=== PATIENT | female | born 1965 | race Hispanic/Latino ===

== ENCOUNTER 2021-05-16 18:55 | Observation (INO) | payer SELFPAY ==
--- NOTE | 2021-05-16 19:30 | Emergency Department Report ---
Blank Doc - Documentation Documentation: Junaid Taveras Teleneurology Consult Note # Demographics Consult Type: Acute Stroke Level 1 (0-4.5 hrs) Patient Location: Emergency Room First Name: [place] Last Name: Gilberto Gender: Female Facility: [facility] Time of Initial Page ( Time): 05/16/2021, 18:57 Time of Return Call ( Time): 05/16/2021, 18:57 # Scores Time of exam and NIHSS ( Time): 05/16/2021, 19:00 Level of Consciousness 1a: [0] = Alert; keenly responsive LOC Questions 1b: [0] = Answers both questions correctly LOC Commands 1c: [0] = Performs both tasks correctly Best Gaze 2: [0] = Normal Visual 3: [0] = No visual loss Facial Palsy 4: [0] = Normal symmetrical movements Motor Arm Left 5a: [0] = No drift Motor Arm Right 5b: [0] = No drift Motor Leg Left 6a: [0] = No drift Motor Leg Right 6b: [0] = No drift Limb Ataxia 7: [0] = Absent Sensory 8: [0] = Normal Best Language 9: [0] = No aphasia Dysarthria 10: [0] = Normal Extinction and Inattention 11: [0] = No abnormality NIHSS Total: 0 # Exam Additional Neurologic Exam: able to sit unassisted # Data Head CT: hypodensity in the left frontal lobe. appears like edema. not consist with stroke # Assessment Impression: Vertigo # Plan Imaging: (urgency: STAT): CT Angiogram Head and CT Angiogram Neck AND call back with results if abnormal Imaging: (urgency: routine): MRI Brain with AND without contrast Other: I have discussed my recommendations with the referring provider Additional Recommendations: given abnormal CT (that are not a typical explanation of her symptoms) MRI is recommended for further eval # Logistics Telemedicine: Interactive 2 way audio and visual telecommunication technology was utilized during this visit
[2021-05-16 19:36] LABS: Basophils % (Auto) 0.7 % (0.0-1.8); Eosinophils # (Auto) 0.1 K/mm3 (0.0-0.4); Eosinophils % (Auto) 2.1 % (0.0-4.3); Hematocrit 43.3 % (30.3-42.9); Lymphocytes # (Auto) 2.2 K/mm3 (1.2-5.4); Lymphocytes % (Auto) 40.7 % (13.4-35.0); Mean Corpuscular HGB Conc 32 % (30-34); Mean Corpuscular Volume 95 fl (79-97); Monocytes # (Auto) 0.4 K/mm3 (0.0-0.8); Monocytes % (Auto) 7.2 % (0.0-7.3); Platelet Count 165 K/mm3 (140-440); Red Blood Count 4.55 M/mm3 (3.65-5.03); Red Cell Distribution Width 13.8 % (13.2-15.2)
[2021-05-16] MEDS ORDERED: MECLIZINE 25 MG TAB PO ONE (19:36)
[2021-05-16] MEDS ORDERED: ONDANSETRON 4 MG/2 ML INJ IV ONE (19:36)
--- NOTE | 2021-05-16 19:42 | Emergency Department Report ---
HPI - General Time Seen by Provider: 05/16/21 19:22 - HPI HPI: Room 18 The patient is a 55-year-old female present with a chief complaint of dizziness. The patient states she was driving back to [place] from [place] when she suddenly became dizzy feeling as though she was spinning. Her family had to pull the car over because she developed nausea and vomiting. Patient states she had an episode of diarrhea as well. Patient denied ever having dysarthria, weakness or paresthesia of any type. Patient denies shortness of breath, fever or cough. Patient denies headache or recent antibiotic use. Patient states she has been vaccinated against Covid receiving her second Moderna vaccine "several months ago." The patient states she took a clonidine approximately 40 minutes ago ED Past Medical Hx - Past Medical History Hx Hypertension: Yes Hx CVA: Yes (No residual deficits) - Surgical History Past Surgical History?: No - Family History Family history: no significant - Social History Smoking Status: Former Smoker (None [id number]) Substance Use Type: None (Denies illicit drug use), Alcohol (Occasional) ED Review of Systems ROS: Stated complaint: POSS STROKE Other details as noted in HPI Constitutional: denies: fever Eyes: denies: eye pain ENT: denies: throat pain Respiratory: denies: cough, shortness of breath Cardiovascular: denies: chest pain Endocrine: no symptoms reported Gastrointestinal: nausea, vomiting, diarrhea Genitourinary: denies: dysuria Musculoskeletal: denies: back pain Neurological: vertigo. denies: headache Physical Exam - Physical Exam Physical Exam: GENERAL: The patient is well-developed well-nourished female lying on stretcher with her eyes closed appearing to be in mild discomfort. [] HEENT: Normocephalic. Atraumatic. Extraocular motions are intact. Patient has moist mucous membranes. No nystagmus NECK: Supple. No meningitic signs are noted. Trachea midline CHEST/LUNGS: Clear to auscultation. There is no respiratory distress noted. HEART/CARDIOVASCULAR: Regular. There is no tachycardia. There is no gallop rub or murmur. ABDOMEN: Abdomen is soft, nontender. Patient has normal bowel sounds. There is no abdominal distention. SKIN: There is no rash. There is no edema. There is no diaphoresis. NEURO: The patient is awake, alert, and oriented. The patient is cooperative. The patient has no focal neurologic deficits. The patient has normal speech. Cranial nerves II through XII grossly intact. GCS 15. NIHSS= 0. No dysmetria noted with [id number] bilaterally MUSCULOSKELETAL: There is no evidence of acute injury. ED Course - Consultations Consultation #1: 05/16/21 21:50 Case discussed with anvil worker Dr Hatfield ED Medical Decision Making - Lab Data Result diagrams: 05/16/21 19:26 Laboratory Tests 05/16/21 05/16/21 05/16/21 19:26 19:26 19:26 WBC 5.3 RBC 4.55 Hgb 14.0 Hct 43.3 H MCV 95 MCH 31 MCHC 32 RDW 13.8 Plt Count 165 Lymph % (Auto) 40.7 H Keith % (Auto) 7.2 Eos % (Auto) 2.1 Baso % (Auto) 0.7 Lymph # (Auto) 2.2 Keith # (Auto) 0.4 Eos # (Auto) 0.1 Baso # (Auto) 0.0 Seg Neutrophils % 49.3 Seg Neutrophils # 2.6 PT 14.0 INR 0.97 APTT 27.1 Thrombin Time 16.3 D-Dimer 191.80 Total Creatine Kinase 80 CK-MB (CK-2) 1.7 CK-MB (CK-2) Rel Index 2.1 Troponin T < 0.010 - Radiology Data Radiology results: report reviewed (CT head, chest x-ray, CT brain, CTA neck), image reviewed (CT head, chest x-ray, CTA brain, CTA neck) interpreted by me: Chest x-ray-no definite focal infiltrates, no pneumothorax [address] [address] Cat Scan Report Signed Patient: BROOK RAMESH MR#: [id number] : 1965 Acct:[id number] Age/Sex: 55 / F ADM Date: 05/16/21 Loc: ED Attending Dr: Ordering Physician: Phuong Salcedo MD Date of Service: 05/16/21 Procedure(s): CT head/brain wo con Accession Number(s): [id number] cc: Phuong Salcedo MD CT HEAD WITHOUT CONTRAST INDICATION / CLINICAL INFORMATION: Stroke symptoms. TECHNIQUE: All CT scans at this location are performed using CT dose reduction for ALARA by means of automated exposure control. COMPARISON: None available. FINDINGS: HEMORRHAGE: No evidence of intracranial hemorrhage or extra-axial fluid collection. EXTRA-AXIAL SPACES: Cortical sulci, sylvian fissures and basilar cisterns have an unremarkable appearance. VENTRICULAR SYSTEM: The third and lateral ventricles are of normal size and configuration. CEREBRAL PARENCHYMA: There is evidence of remote small deep infarction adjacent to the head of the caudate nucleus on the left. Decreased brain parenchymal attenuation is seen in the white matter left frontal lobe. This appears to spare the adjacent cortex and may not represent the sequelae of recent infarction. Follow- up with MRI brain without and with intravenous contrast is recommended for f urther evaluation of the left frontal lobe abnormality. MIDLINE SHIFT OR HERNIATION: There is no mass effect. CEREBELLUM / BRAINSTEM: Brainstem and cerebellum have an unremarkable appearance. MIDLINE STRUCTURES:No abnormalities of the pituitary gland or pineal region are identified. INTRACRANIAL VESSELS:No abnormalities are identified on this noncontrast head CT. ORBITS: visualized portions of the orbits have an unremarkable appearance. SOFT TISSUES of HEAD: No significant abnormality. CALVARIUM: Evaluation of bone windows reveals no abnormalities. PARANASAL SINUSES / MASTOID AIR CELLS: Visualized portions of the paranasal sinuses are free from inflammatory mucosal disease. Mastoid air cells are normally pneumatized. IMPRESSION: 1. Remote small deep infarction adjacent to the head of caudate nucleus on the left. 2. Nonspecific decreased white matter attenuation left frontal lobe. Further evaluation with magnetic resonance imaging to be performed without and with intravenous contrast is suggested. Signer Name: Tarun Arriaga MD Signed: 05/16/2021 8:00 PM Workstation Name: [id number] Transcribed By: Dictated By: Tarun Arriaga MD Electronically Authenticated By: Tarun Arriaga MD Signed Date/Time: 05/16/211999 DD/ 47 TD/TT: Print Cancel [facility] [address] [place] [address] XRay Report Signed Patient: BROOK RAMESH MR#: [id number] : 1965 Acct:[id number] Age/Sex: 55 / F ADM Date: 05/16/21 Loc: ED Attending Dr: Ordering Physician: Phuong Salcedo MD Date of Service: 05/16/21 Procedure(s): XR chest 1V ap Accession Number(s): [id number] cc: Phuong Salcedo MD Fluoro Time In Minutes: CHEST 1 VIEW 05/16/2021 6:47 PM INDICATION / CLINICAL INFORMATION: stroke symptoms. COMPARISON: None available. FINDINGS: SUPPORT DEVICES: None. HEART / MEDIASTINUM: No significant abnormality. LUNGS / PLEURA: No significant pulmonary or pleural abnormality. No pneumothorax. ADDITIONAL FINDINGS: No significant additional findings. IMPRESSION: 1. No acute findings. Signer Name: Dillan Pop MD Signed: 05/16/2021 7:52 PM Workstation Name: [id number] Transcribed By: THANG Dictated By: Dillan Pop MD Electronically Authenticated By: Dillan Pop MD Signed Date/Time: 05/16/211951 DD/ 51 TD/TT: [place] [address] Cat Scan Report Signed Patient: BROOK RAMESH MR#: [id number] : 1965 Acct:[id number] Age/Sex: 55 / F ADM Date: 05/16/21 Loc: ED Attending Dr: Ordering Physician: Phuong Salcedo MD Date of Service: 05/16/21 Procedure(s): CT angio head Accession Number(s): [id number] cc: Phuong Salcedo MD CTA neck without and with intravenous contrast material CLINICAL HISTORY: stroke sx TECHNIQUE: Following acquisition of a timing bolus 0.625 mm thick contiguous axial scans were obtained from aortic arch to the skull base during rapid bolus intravenous contrast infusion. In addition to evaluation of axial source images multiplanar reconstructions were produced and reviewed for this report. 3 plane MIP reconstructions were produced and reviewed. Contrast dose report: Omnipaque 350: 100 ml, administered intravenously All CT examinations performed at this facility utilize modulated dose reduction, iterative reconstruction or weight- based dosing, as appropriate, to obtain a radiation dose which is as low as can reasonably be achieved. FINDINGS: Thoracic aorta:No abnormalities are identified along the course of the thoracic aorta..The origins of the great vessels have an unremarkable appearance. Brachiocephalic artery, left common carotid artery origin and left subclavian artery all have an unremarkable appearance. Right carotid artery: Combination of soft and calcified plaque is present at the carotid bulb extending into the proximal R ICA. There is no indication of hemodynamically significant stenosis. Right common carotid artery and mid and distal segments of the R ICA have an unremarkable appearance. Left carotid artery: Calcified atherosclerotic plaque is seen along the proximal LICA. There is no associated stenosis. Left common carotid artery, left carotid bulb and mid and distal segments of the LICA have an unremarkable appearance. Posterior circulation:The vertebral arteries have an unremarkable appearance. Both vertebr al arteries contribute to the basilar artery origin. The basilar artery has an unremarkable appearance. The degree of stenosis, if any, is determined utilizing NASCET like criteria. In this case there is no indication of hemodynamically significant stenosis at the carotid bifurcations or elsewhere. Evaluation of the nonvascular soft tissue structures reveal no abnormality. There is no indication of cervical lymphadenopathy. No abnormalities are seen along the course of the airway. Visualized portions of the parotid glands and the submandibular salivary glands have a normal appearance. Thyroid gland has a normal appearance. Evaluation of the lung apices reveals no evidence of lung nodule or infiltrate. Evaluation of the cervical spine is remarkable for widespread degenerative changes with disc desiccation and small anterior and posterior osteophytes present at multiple levels. Central spinal canal is adequately maintained throughout. IMPRESSION: 1. No indication of hemodynamically significant stenosis at the carotid bifurcations or elsewhere. CTA head with intravenous contrast CLINICAL HISTORY: stroke sx TECHNIQUE: 0.625 mm thick contiguous axial scans were obtained from the skull base to the skull vertex during rapid bolus administration of intravenous contrast material. Multiplanar reconstructions were produced in the coronal and sagittal planes. In addition 3 plane MIP instructions were produced and reviewed for this report. The axial source images and reconstructed images were reviewed for this report. CONTRAST DOSE REPORT: Omnipaque 350: 100 ml administered intravenously. All CT scans at this location are performed using CT dose reduction for ALARA by means of automated exposure control. FINDINGS: Internal carotid arteries:Anitra, cavernous, opthalmic, clinoid and supraclinoid segments of the ICAs have an unremarkable appearance. Middle cerebral arteries:Normal and symmetrical M1 segments of the middle cerebral arteries are demonstrated. No abnormalities are seen on evaluation of the insular or opercular branches. Anterior cerebral arteries:Bilaterally symmetrical A1 segments are demonstrated. No abnormalities are seen along the course of the A2 segments or their visualized pericallosal branches. Vertebral arteries:Bilaterally symmetrical vertebral arteries are demonstrated. Both vertebral arteries contribute to the basilar artery origin. Basilar artery:Basilar artery has an unremarkable appearance. Posterior cerebral arteries:Bilaterally symmetrical posterior cerebral arteries are identified. Dural sinuses: Asymmetry of the transverse sinuses is demonstrated, right larger than left. Filling defects in the right transverse sinus appear to represent pacchionian granulations. Superior sagittal sinus, straight sinus, vein of Tenzin and internal cerebral veins have an unremarkable appearance. IMPRESSION: 1. No indication of significant intercranial stenosis or large vessel occlusion. Signer Name: Tarun Arriaga MD Signed: 05/16/2021 8:10 PM Workstation Name: [id number] Transcribed By: Dictated By: Tarun Arriaga MD Electronically Authenticated By: Tarun Arriaga MD Signed Date/Time: 05/16/212009 DD/ 00 TD/TT: Print Cancel - Differential Diagnosis CVA, vertigo, hypertensive urgency, hypertensive emergency Critical care attestation.: If time is entered above; I have spent that time in minutes in the direct care of this critically ill patient, excluding procedure time. ED Disposition Clinical Impression: Hypertensive urgency, Vertigo Disposition: ADMITTED INPATIENT Is pt being admited?: Yes Does the pt Need Aspirin: Yes Condition: Fair Time of Disposition: 21:50 (Hospitalist notified (Dr. Alarcon))
[2021-05-16 19:46] LABS: INR 0.97 (0.87-1.13)
[2021-05-16 19:47] LABS: Partial Thromboplastin Time 27.1 Sec. (24.2-36.6); Thrombin Time 16.3 Sec. (15.1-19.6)
[2021-05-16 19:54] LABS: Creatine Kinase MB 1.7 ng/mL (0.0-4.0)
--- NOTE | 2021-05-16 19:56 | XRay Report ---
CHEST 1 VIEW 05/16/2021 6:47 PM INDICATION / CLINICAL INFORMATION: stroke symptoms. COMPARISON: None available. FINDINGS: SUPPORT DEVICES: None. HEART / MEDIASTINUM: No significant abnormality. LUNGS / PLEURA: No significant pulmonary or pleural abnormality. No pneumothorax. ADDITIONAL FINDINGS: No significant additional findings. IMPRESSION: 1. No acute findings. Signer Name: Dillan Pop MD Signed: 05/16/2021 7:52 PM Workstation Name: [id number]
--- NOTE | 2021-05-16 20:04 | Cat Scan Report ---
CT HEAD WITHOUT CONTRAST INDICATION / CLINICAL INFORMATION: Stroke symptoms. TECHNIQUE: All CT scans at this location are performed using CT dose reduction for ALARA by means of automated e xposure control. COMPARISON: None available. FINDINGS: HEMORRHAGE: No evidence of intracranial hemorrhage or extra-axial fluid collection. EXTRA-AXIAL SPACES: Cortical sulci, sylvian fissures and basilar cisterns have an unremarkable appear ance. VENTRICULAR SYSTEM: The third and lateral ventricles are of normal size and configuration. CEREBRAL PARENCHYMA: There is evidence of remote small deep infarction adjacent to the head of the ca udate nucleus on the left. Decreased brain parenchymal attenuation is seen in the white matter left f rontal lobe. This appears to spare the adjacent cortex and may not represent the sequelae of recent i nfarction. Follow-up with MRI brain without and with intravenous contrast is recommended for further evaluation of the left frontal lobe abnormality. MIDLINE SHIFT OR HERNIATION: There is no mass effect. CEREBELLUM / BRAINSTEM: Brainstem and cerebellum have an unremarkable appearance. MIDLINE STRUCTURES:No abnormalities of the pituitary gland or pineal region are identified. INTRACRANIAL VESSELS:No abnormalities are identified on this noncontrast head CT. ORBITS: visualized portions of the orbits have an unremarkable appearance. SOFT TISSUES of HEAD: No significant abnormality. CALVARIUM: Evaluation of bone windows reveals no abnormalities. PARANASAL SINUSES / MASTOID AIR CELLS: Visualized portions of the paranasal sinuses are free from inf lammatory mucosal disease. Mastoid air cells are normally pneumatized. IMPRESSION: 1. Remote small deep infarction adjacent to the head of caudate nucleus on the left. 2. Nonspecific decreased white matter attenuation left frontal lobe. Further evaluation with magnetic resonance imaging to be performed without and with intravenous contrast is suggested. Signer Name: Tarun Arriaga MD Signed: 05/16/2021 8:00 PM Workstation Name: [id number]
[2021-05-16] MEDS ORDERED: niCARdipine DRIP 40 MG/200 ML BAG IV ONE (20:15)
--- NOTE | 2021-05-16 20:15 | Cat Scan Report ---
CTA neck without and with intravenous contrast material CLINICAL HISTORY: stroke sx TECHNIQUE: Following acquisition of a timing bolus 0.625 mm thick contiguous axial scans were obtained from aort ic arch to the skull base during rapid bolus intravenous contrast infusion. In addition to evaluation of axial source images multiplanar reconstructions were produced and reviewed for this report. 3 [place] MIP reconstructions were produced and reviewed. Contrast dose report: Omnipaque 350: 100 ml, administered intravenously All CT examinations performed at this facility utilize modulated dose reduction, iterative reconstruc tion or weight-based dosing, as appropriate, to obtain a radiation dose which is as low as can reason ably be achieved. FINDINGS: Thoracic aorta:No abnormalities are identified along the course of the thoracic aorta..The origins of the great vessels have an unremarkable appearance. Brachiocephalic artery, left common carotid arter y origin and left subclavian artery all have an unremarkable appearance. Right carotid artery: Combination of soft and calcified plaque is present at the carotid bulb extendi ng into the proximal R ICA. There is no indication of hemodynamically significant stenosis. Right com mon carotid artery and mid and distal segments of the R ICA have an unremarkable appearance. Left carotid artery: Calcified atherosclerotic plaque is seen along the proximal LICA. There is no as sociated stenosis. Left common carotid artery, left carotid bulb and mid and distal segments of the L ICA have an unremarkable appearance. Posterior circulation:The vertebral arteries have an unremarkable appearance. Both vertebral arteries contribute to the basilar artery origin. The basilar artery has an unremarkable appearance. The degree of stenosis, if any, is determined utilizing NASCET like criteria. In this case there is no indication of hemodynamically significant stenosis at the carotid bifurcations or elsewhere. Evaluation of the nonvascular soft tissue structures reveal no abnormality. There is no indication of cervical lymphadenopathy. No abnormalities are seen along the course of the airway. Visualized porti ons of the parotid glands and the submandibular salivary glands have a normal appearance. Thyroid gla nd has a normal appearance. Evaluation of the lung apices reveals no evidence of lung nodule or infil trate. Evaluation of the cervical spine is remarkable for widespread degenerative changes with disc desiccat ion and small anterior and posterior osteophytes present at multiple levels. Central spinal canal is adequately maintained throughout. IMPRESSION: 1. No indication of hemodynamically significant stenosis at the carotid bifurcations or elsewhere. CTA head with intravenous contrast CLINICAL HISTORY: stroke sx TECHNIQUE: 0.625 mm thick contiguous axial scans were obtained from the skull base to the skull vertex during r apid bolus administration of intravenous contrast material. Multiplanar reconstructions were produced in the coronal and sagittal planes. In addition 3 plane MIP instructions were produced and reviewed for this report. The axial source images and reconstructed images were reviewed for this report. CONTRAST DOSE REPORT: Omnipaque 350: 100 ml administered intravenously. All CT scans at this location are performed using CT dose reduction for ALARA by means of automated e xposure control. FINDINGS: Internal carotid arteries:Anitra, cavernous, opthalmic, clinoid and supraclinoid segments of the ICAs have an unremarkable appearance. Middle cerebral arteries:Normal and symmetrical M1 segments of the middle cerebral arteries are demon strated. No abnormalities are seen on evaluation of the insular or opercular branches. Anterior cerebral arteries:Bilaterally symmetrical A1 segments are demonstrated. No abnormalities are seen along the course of the A2 segments or their visualized pericallosal branches. Vertebral arteries:Bilaterally symmetrical vertebral arteries are demonstrated. Both vertebral arteri es contribute to the basilar artery origin. Basilar artery:Basilar artery has an unremarkable appearance. Posterior cerebral arteries:Bilaterally symmetrical posterior cerebral arteries are identified. Dural sinuses: Asymmetry of the transverse sinuses is demonstrated, right larger than left. Filling d efects in the right transverse sinus appear to represent pacchionian granulations. Superior sagittal sinus, straight sinus, vein of Tenzin and internal cerebral veins have an unremarkable appearance. IMPRESSION: 1. No indication of significant intercranial stenosis or large vessel occlusion. Signer Name: Tarun Arriaga MD Signed: 05/16/2021 8:10 PM Workstation Name: [id number]
[2021-05-16] MEDS ORDERED: ASPIRIN 300 MG RECT SUPP PR ONE (20:41)
[2021-05-16] MEDS ORDERED: ACETAMINOPHEN 325 MG TAB PO PRN (22:10)
[2021-05-16] MEDS ORDERED: ALBUTEROL 2.5 MG/3 ML NEBU IH PRN (22:10)
[2021-05-16] MEDS ORDERED: ONDANSETRON 4 MG/2 ML INJ IV PRN (22:10)
[2021-05-16] MEDS ORDERED: HYDROmorphone 1 MG/1 ML INJ IV PRN (22:10)
[2021-05-16] MEDS ORDERED: MORPHINE 2 MG/1 ML INJ IV PRN (22:10)
[2021-05-16] MEDS ORDERED: SODIUM CHLORIDE 0.9% 1000 ML 1,000 ML IV SCH (22:15)
--- NOTE | 2021-05-16 22:20 | History and Physical Report ---
History of Present Illness Date of examination: 05/16/21 Date of admission: 05/16/21 21:51 Chief complaint: dizziness History of present illness: 55-year-old female present with a chief complaint of dizziness. The patient was driving back to [place] from [place] when she suddenly became dizzy feeling as though she was spinning. Her family had to pull the car over because she developed nausea and vomiting. Patient states she had an episode of diarrhea as well. Patient denied ever having dysarthria, weakness or paresthesia of any type. Patient denies shortness of breath, fever or cough. Patient denies headache or recent antibiotic use. Patient states she has been vaccinated against Covid receiving her second Moderna vaccine "several months ago." The patient states she took a clonidine approximately 40 minutes ago In the emergency room patient was seen and evaluated by telemetry neurology for suspected stroke. Patient head CT showed hypodensity in the left frontal lobe appears like edema not consistent with a stroke. Neurologist recommended MRI of the brain with and without contrast. Also patient is found to have hypertensive BP is 255/127 subsequently patient was put on nicardipine drip.'s were going to admit the patient to the ICU. We put the patient on TIA pathway. Will consult critical care and neurology evaluation Past History Past Medical History: hypertension, stroke Medications and Allergies Allergies Allergy/AdvReac Type Severity Reaction Status Date / Time No Known Allergies Allergy Unverified 05/16/21 19:51 Active Meds: Active Medications Nicardipine/Sodium Chloride (Cardene Drip 40 Mg/200 Ml) 40 mg in 200 mls @ 25 mls/hr IV ONCE ONE; Protocol Stop: 05/17/21 04:14 Last Admin: 05/16/21 20:55 Dose: 5 mg/hr, 25 mls/hr Documented by: Review of Systems All systems: negative Cardiovascular: other (Dizziness) Gastrointestinal: nausea, vomiting Exam - Constitutional Vitals: Temp Pulse Resp BP Pulse Ox 20 161/85 94 05/16/21 20:00 05/16/21 21:45 05/16/21 21:45 General appearance: Present: mild distress, well-nourished - EENT Eyes: Present: PERRL ENT: hearing intact, clear oral mucosa - Neck Neck: Present: supple, normal ROM - Respiratory Respiratory effort: normal Respiratory: bilateral: diminished - Cardiovascular Heart Sounds: Present: S1 & S2. Absent: rub, click - Extremities Extremities: pulses symmetrical, No edema Peripheral Pulses: within normal limits - Abdominal General gastrointestinal: Present: soft, non-tender, non-distended, normal bowel sounds Female genitourinary: Present: normal - Integumentary Integumentary: Present: clear, warm, dry - Musculoskeletal Musculoskeletal: gait normal, strength equal bilaterally - Psychiatric Psychiatric: appropriate mood/affect, intact judgment & insight - Neurologic Neurologic: CNII-XII intact, moves all extremities HEART Score - HEART Score Troponin: Troponin T < 0.010 ng/mL (0.00-0.029) 05/16/21 19: Results - Labs CBC & Chem 7: 05/16/21 19: Labs: Laboratory Last Values WBC 5.3 K/mm3 (4.5-11.0) 05/16/21 19: RBC 4.55 M/mm3 (3.65-5.03) 05/16/21 19: Hgb 14.0 gm/dl (10.1-14.3) 05/16/21 19: Hct 43.3 % (30.3-42.9) H 05/16/21 19: MCV 95 fl (79-97) 05/16/21 19: MCH 31 pg (28-32) 05/16/21 19: MCHC 32 % (30-34) 05/16/21 19: RDW 13.8 % (13.2-15.2) 05/16/21 19: Plt Count 165 K/mm3 (140-440) 05/16/21 19: Lymph % (Auto) 40.7 % (13.4-35.0) H 05/16/21 19: [place] % (Auto) 7.2 % (0.0-7.3) 05/16/21 19: Eos % (Auto) 2.1 % (0.0-4.3) 05/16/21 19: Baso % (Auto) 0.7 % (0.0-1.8) 05/16/21 19: Lymph # (Auto) 2.2 K/mm3 (1.2-5.4) 05/16/21 19: [place] # (Auto) 0.4 K/mm3 (0.0-0.8) 05/16/21 19:26 Eos # (Auto) 0.1 K/mm3 (0.0-0.4) 05/16/21 19:26 Baso # (Auto) 0.0 K/mm3 (0.0-0.1) 05/16/21 19:26 Seg Neutrophils % 49.3 % (40.0-70.0) 05/16/21 19: Seg Neutrophils # 2.6 K/mm3 (1.8-7.7) 05/16/21 19:26 PT 14.0 Sec. (12.2-14.9) 05/16/21 19: INR 0.97 (0.87-1.13) 05/16/21 19: APTT 27.1 Sec. (24.2-36.6) 05/16/21 19: Thrombin Time 16.3 Sec. (15.1-19.6) 05/16/21 19:26 D-Dimer 191.80 ng/mlDDU (0-234) 05/16/21 19:26 Total Creatine Kinase 80 units/L (30-135) 05/16/21 19:26 CK-MB (CK-2) 1.7 ng/mL (0.0-4.0) 05/16/21 19:26 CK-MB (CK-2) Rel Index 2.1 (0-4) 05/16/21 19:26 Troponin T < 0.010 ng/mL (0.00-0.029) 05/16/21 19:26 - Imaging and Cardiology CT Scan - head: report reviewed Assessment and Plan VTE prophylaxis?: Mechanical Plan of care discussed with patient/family: Yes - Patient Problems (1) Hypertensive urgency Current Visit: Yes Status: Acute Plan to address problem: Admit the patient to ICU. Aspirin 325 9 p.o. daily. Lipitor 40 mg p.o. daily. We will put the patient on nicardipine drip. We will continue the home m edication we will monitor the blood pressure closely. We also consult critical care evaluation (2) CVA (cerebral vascular accident) Current Visit: Yes Status: Acute Plan to address problem: Aspirin 325 mg p.o. daily. Lipitor 40 mg p.o. daily. We will do the MRI of the brain with and without contrast and MRA of the brain and neck with and without contrast. Echocardiogram. Neurology evaluation (3) Hypertension Current Visit: Yes Status: Acute Plan to address problem: Patient is on nicardipine drip as per protocol. We will monitor the blood pressure closely. We will continue the home medication (4) Vertigo Current Visit: Yes Status: Acute Plan to address problem: Normal saline at the rate of 75 cc/h. We will do MRI of the brain with and without contrast and MRA of the brain and neck with and without contrast. Echocardiogram. We will monitor the patient closely (5) DVT prophylaxis Current Visit: Yes Status: Acute Plan to address problem: SCD for DVT prophylaxis because of high blood pressure. Pepcid 20 mg p.o. twice daily for GI prophylaxis. Patient is a full code
[2021-05-16 23:55] VITALS: BP 167/101
[2021-05-17] MEDS ORDERED: IPRATROPIUM/ALBUTEROL SULFATE 3 ML AMPUL.NEB IH SCH (02:00)
--- NOTE | 2021-05-17 08:29 | Consultation ---
History of Present Illness Consult date: 05/17/21 Past History Past Medical History: hypertension, stroke Medications and Allergies Allergies Allergy/AdvReac Type Severity Reaction Status Date / Time No Known Allergies Allergy Verified 05/16/21 22:22 Physical Examination - Vital Signs Vital Signs: Vital Signs Pulse Ox 95 05/16/21 19:30 Results - Laboratory Findings CBC and BMP: 05/16/21 19:26 Abnormal Lab Findings: Abnormal Labs 05/16/21 19:26 Hct 43.3 H Lymph % (Auto) 40.7 H Assessment and Plan Assessment and Plan VTE prophylaxis?: Mechanical Plan of care discussed with patient/family: Yes pt. signed AMA could not evaluate
--- NOTE | 2021-05-17 09:32 | Electrocardiograph Report ---
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
[2021-05-17] MEDS ORDERED: FAMOTIDINE 20 MG/2 ML INJ IV SCH (10:00)
[2021-05-17] MEDS ORDERED: ASPIRIN 325 MG TAB PO SCH (10:00)
--- NOTE | 2021-05-19 11:32 | Electrocardiograph Report ---
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
== END 2021-05-16 23:56 | disposition home or self-care (01) ==
LOC: ED 18:55 → 4A 21:51 → CC1 22:16
PROVIDERS: ADMIT Hospitalist; ATTEND Internal Medicine
DX: I16.0 Hypertensive urgency (principal); I63.9 Cerebral infarction, unspecified; I10 Essential (primary) hypertension; R42 Dizziness and giddiness; R29.700 NIHSS score 0; Z87.891 Personal history of nicotine dependence
CPT/HCPCS: 36415; 70450; 70496; 70498; 71045; 82550; 82553; 84484; 85025; 85379; 85610; 85670; 85730; 93005; 96365; 96366; 96375; 99285; G0378; J2405; Q9967